=== PATIENT | female | born 1975 | race Caucasian/White ===

== ENCOUNTER 2016-07-30 18:46 | Emergency (ER) | payer OTHER ==
[2016-07-30 18:53] VITALS: RESP 18
--- NOTE | 2016-07-30 19:45 | ED ---
General Adult HPI - General Chief complaint: Eye Problems Stated complaint: Vision loss L eye Time Seen by Provider: 07/30/16 19:05 Source: patient, family, RN notes reviewed Mode of arrival: ambulatory Limitations: no limitations - History of Present Illness Initial comments: Chief complaint and history of present illness a 41-year-old female here with her . The patient has had for the past week worsening vision in her left eye. Patient has migraines approximately one per month. Usually of some photophobia. The migraine she had last week and then a day or so later she started having difficulty seeing with her left side. Initially it was as though there was a large dark spot in the middle of her vision she can see all around the above and below now she has difficulty seeing the upper field of view and the medial side of view. Patient has not had a headache. She does not normally have auras associated with the headaches. Denies any trauma. Denies any palpitations. Denies any significant medical problems. States she waited this long is expecting it to get better and improved. - Related Data Home Medications Medication Instructions Recorded Confirmed [id number] 1 tab PO Q4HR PRN 07/30/16 07/30/16 [Excedrin] Estrogens, Conjugated [Premarin] 0.625 mg PO DAILY 07/30/16 07/30/16 Levothyroxine Sodium [Synthroid] 50 mcg PO DAILY 07/30/16 07/30/16 Allergies Allergy/AdvReac Type Severity Reaction Status Date / Time Penicillins Allergy Anaphylaxis Verified 07/30/16 19:22 Review of Systems ROS Statement: Those systems with pertinent positive or pertinent negative responses have been documented in the HPI. Review of systems. No headache. Left eye visual acuity changes as noted in the chief complaint. No problem with right eye no sore throat no stiff neck no headache. No chest pain palpitations shortness of breath no GI/ problems. No neuro deficits other than visual changes with her left eye. All systems were reviewed. Past medical problems migraines almost monthly. Only associated problems usually photophobia. Denies ever having had any significant scotomas or visual acuity changes. Patient surgeries include hysterectomy and tonsillectomy. Family history no cancers of brain tumors or problems with her eyes. No history of MS. The family. She has ALLERGIES to penicillin. She does smoke strongly encouraged to stop denies alcohol use. ROS Other: All systems not noted in ROS Statement are negative. Past Medical History Past Medical History: Thyroid Disorder History of Any Multi-Drug Resistant Organisms: None Reported Past Surgical History: Hysterectomy, Tonsillectomy Past Psychological History: No Psychological Hx Reported Smoking Status: Current every day smoker Past Alcohol Use History: None Reported Past Drug Use History: None Reported General Exam - General Exam Comments Initial Comments: General: The patient is awake and alert, in no distress, and does not appear acutely ill. Planes of worsening over the past week left eye visual acuity. Vital signs show temperature 98.7 pulse 53 respiratory rate 18 pulse ox 98% room air blood pressure 177/92. Elevated systolic diastolic not typical for the patient. Eye: Pupils are equal, round and reactive to light, extra-ocular movements are intact ; there is normal conjunctiva bilaterally. No signs of icterus. No photophobia. Sclera normal. Visual acuity right eye 20/40 left eye 20/100 and bilateral 20/25. Recently the patient's been complaining of visual acuity changes with her left eye. No difficulty seeing the upper and the medial aspects of her visual field. This is getting progressively worse over the past week. Ears, nose, mouth and throat: There are moist mucous membranes and no oral lesions. Neck: The neck is supple, there is no tenderness , no anterior cervical lymphadenopathy. No carotid bruits.. Cardiovascular: There is a regular rate and rhythm. No murmur, rub or gallop is appreciated. Respiratory: Lungs are clear to auscultation, respirations are non-labored, breath sounds are equal. No wheezes, stridor, rales, or rhonchi. Gastrointestinal: Soft, non-distended, non-tender abdomen without masses or organomegaly noted. There is no rebound or guarding present. No CVA tenderness. Bowel sounds are unremarkable. Back: No complaint of back pain. Musculoskeletal: Normal ROM, no tenderness, There is no pedal edema. There is no calf tenderness or swelling. Sensation intact. Pulses equal bilaterally 2+. Neurological: CN II-XII intact, There are no obvious motor or sensory deficits. Coordination appears grossly intact. Speech is normal. No focal or lateralizing findings, cranial nerves are intact. Skin: Skin is warm and dry and no rashes or lesions are noted. Limitations: no limitations Course Vital Signs 07/30/16 07/30/16 18:51 20:02 Temperature 98.7 F Pulse Rate 53 L 54 L Respiratory 18 18 Rate Blood Pressure 177/92 141/84 O2 Sat by Pulse 98 100 Oximetry EKG Findings - EKG Comments: EKG Findings:: EKG was done and reviewed at 1924 showing marked sinus bradycardia. No acute ST elevation. No ectopy. Rate 45 when necessary 4 QRS 88 QT [address] Lemus Medical Decision Making - Medical Decision Making Medical decision making; the patient had a CAT scan of the brain done and reviewed by radiologist his findings are there is no acute intracranial hemorrhage, mass effect, or midline shift identified. The ventricles and sulci are within normal limits in size. The globes are intact and the visualized sinuses are clear. Impression; #1 no acute intracranial hemorrhage, mass effect , or midline shift seen. #2 if headaches and decreased visual acuity in the left eye persists nonemergent MRI brain should be considered. As read by I discussed the case including the EKG findings and the CAT scan findings with on-call industrial relations director Dr. shepherd. He will see the patient in his office at 9 AM tomorrow morning. Disposition Clinical Impression: Visual acuity reduced Disposition: HOME SELF-CARE Condition: Stable Additional Instructions: Follow-up with the eye doctor tomorrow morning at 9 AM in his office as directed. Time of Disposition: 20:29
--- NOTE | 2016-07-30 20:03 | CT ---
EXAMINATION TYPE: CT brain wo con DATE OF EXAM: 07/30/2016 7:43 PM COMPARISON: NONE HISTORY: Migraine x 1 week with decreased visual field to left eye. CT DLP: 999.80 mGycm. Automated Exposure Control for Dose Reduction was Utilized. TECHNIQUE: CT scan of the head is performed without contrast. FINDINGS: There is no acute intracranial hemorrhage, mass effect, or midline shift identified. The ventricles and sulci are within normal limits in size. The globes are intact and the visualized sin uses are clear. IMPRESSION: 1. No acute intracranial hemorrhage, mass effect, or midline shift is seen. 2. If headaches and decreased visual acuity in the left eye persists, nonemergent MRI brain could be considered.
[2016-07-30 20:04] VITALS: BP 141/84; PULSE 54
[2016-07-30 20:42] VITALS: TEMP 97.9
== END 2016-07-30 20:41 | disposition home or self-care (01) ==
LOC: EC 18:46
DX: Z79.890 Hormone replacement therapy (principal); G43.909 Migraine, unspecified, not intractable, without status migrainosus; E07.9 Disorder of thyroid, unspecified; F17.200 Nicotine dependence, unspecified, uncomplicated; Z79.899 Other long term (current) drug therapy; H54.62 Unqualified visual loss, left eye, normal vision right eye; Z88.0 Allergy status to penicillin
CPT/HCPCS: 70450; 93005; 99284

== ENCOUNTER → 2017-02-16 | Outpatient (CLI) | payer OTHER ==
--- NOTE | 2017-02-17 10:51 | MM ---
Reason for exam: screening (asymptomatic). Last mammogram was performed 7 years and 1 month ago. History: Patient is postmenopausal. Cancelled Right Needle Localization of the right breast, January 23, 2010. Cancelled Right Mammotome of the right breast, January 05, 2010. 2 benign excisional biopsies of the left breast. Took hormonal contraceptives for 3 years. Physical Findings: A clinical breast exam by your physician is recommended on an annual basis and results should be correlated with mammographic findings. MG Screening Mammo w CAD Bilateral CC and MLO view(s) were taken. No prior studies available for comparison. The breast tissue is heterogeneously dense. This may lower the sensitivity of mammography. There are rounded calcifications appearing at the skin surface near the intramammry fold and superiorly at a middle anterior depth on right breast. No suspicious abnormality. ASSESSMENT: Benign, BI-RAD 2 RECOMMENDATION: Routine screening mammogram of both breasts in 1 year. Manage on a clinical basis with regard to intermittent left breast pain. If focal diagnostic mammogram should be performed.
== END | disposition home or self-care (01) ==
LOC: RADMAMWWP 07:55
PROVIDERS: ATTEND Family Medicine
DX: Z12.31 Encounter for screening mammogram for malignant neoplasm of breast (principal)

== ENCOUNTER → 2017-02-16 | Outpatient (CLI) | payer OTHER ==
--- NOTE | 2017-02-16 10:35 | MR ---
EXAMINATION TYPE: MR lumbar spine wo con DATE OF EXAM: 02/16/2017 COMPARISON: 12/25/2010 HISTORY: 41-year-old female chronic low back pain TECHNIQUE: Multiplanar, multisequence images of the lumbar spine were acquired. Findings: Vertebral body heights are preserved and alignment is maintained. A T1 hypointense focus within the right L1 vertebral body was present back in 2010 suggesting a benig n etiology. Fatty matrix hemangioma within L3 vertebral body. No suspicious bone marrow placement. Relatively maintained disc hydration with only minimal disc bulging particularly at L4-L5. Facet arthropathy mid to lower lumbar spine. 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 This is increased in size from 2010 where it measured 1.8 cm. No prevertebral or paravertebral soft tissue abnormality. Conus medullaris is normal. No significant spinal canal or neuroforaminal stenosis identified. IMPRESSION: 1. Increasing size of the left-sided sacral Tarlov cyst now measuring 2.6 cm versus 1.8 cm on 12/26/19 11. There is associated chronic bony expansion and remodeling secondary to the cyst. Note that this i s probably an incidental finding. Occasionally, these can be symptomatic. 2. Very minimal disc bulging particularly at L4-L5. Mild facet arthropathy in the mid to lower lumbar spine appears slightly increased. 3. No significant spinal canal or neuroforaminal stenosis.
== END | disposition home or self-care (01) ==
LOC: RADMRIMAIN 08:20
PROVIDERS: ATTEND Family Medicine
DX: M51.26 Other intervertebral disc displacement, lumbar region (principal); M46.86 Other specified inflammatory spondylopathies, lumbar region
CPT/HCPCS: 72148

== ENCOUNTER 2017-10-17 11:39 | Emergency (ER) | payer OTHER ==
[2017-10-17 12:53] LABS: Basophils % (A) 0 %; Eosinophils # (A) 0.2 k/uL (0-0.7); Eosinophils % (A) 2 %; HGB 14.2 gm/dL (11.4-16.0); Lymphocytes # (A) 1.1 k/uL (1.0-4.8); Lymphocytes % (A) 16 %; MCH 29.8 pg (25.0-35.0); MCHC 33.1 g/dL (31.0-37.0); Monocytes # (A) 0.3 k/uL (0-1.0); Monocytes % (A) 4 %; Neutrophils # (A) 5.5 k/uL (1.3-7.7); Neutrophils % (A) 77 %; Platelet Count 220 k/uL (150-450); RBC 4.78 m/uL (3.80-5.40); RDW 13.5 % (11.5-15.5); WBC 7.2 k/uL (3.8-10.6)
[2017-10-17 13:09] LABS: ALT 23 U/L (9-52); AST 17 U/L (14-36); Albumin 3.6 g/dL (3.5-5.0); Alkaline Phosphatase 57 U/L (38-126); Amylase 47 U/L (30-110); Anion Gap 10 mmol/L; Blood Urea Nitrogen 20 mg/dL (7-17); Calcium 8.9 mg/dL (8.4-10.2); Carbon Dioxide 27 mmol/L (22-30); Chloride 105 mmol/L (98-107); Glucose 91 mg/dL (74-99); Lipase 32 U/L (23-300); Potassium 3.8 mmol/L (3.5-5.1); Sodium 142 mmol/L (137-145); Total Bilirubin 0.7 mg/dL (0.2-1.3); Total Protein 5.9 g/dL (6.3-8.2)
[2017-10-17] MEDS ORDERED: SODIUM CHLORIDE 0.9% 1,000 ML IV STA (13:17)
[2017-10-17] MEDS ORDERED: ONDANSETRON 4 MG/2 ML VIAL IVP STA (13:17)
[2017-10-17] MEDS ORDERED: SODIUM CHLORIDE 0.9% 2,000 ML IV STA (13:17)
[2017-10-17] MEDS ORDERED: PANTOPRAZOLE 40 MG/10 ML VIAL IVP STA (13:19)
[2017-10-17] MEDS ORDERED: ACETAMINOPHEN IV (For NPO) 1,000 MG in EMPTY BAG 1 BAG IVPB ONE (14:07)
--- NOTE | 2017-10-17 14:07 | ED ---
Nausea/Vomiting/Diarrhea HPI - General Chief complaint: Nausea/Vomiting/Diarrhea Stated complaint: vomiing Time Seen by Provider: 10/17/17 13:11 Source: patient Mode of arrival: ambulatory Limitations: no limitations - History of Present Illness Initial comments: This 42-year-old white female presents with a complaint of some nausea and vomiting. She states that it is been present for the last 3 days. She further relates that she is unable to take in any food or fluids whatsoever has she will just vomit them right back up. She has occasional midepigastric abdominal pain when she vomits. She denies any diarrhea, fevers, or chills. She does feel weak and dehydrated. She also has had a slight headache. She relates that she's had occasional midsternal chest pain which is worse with deep inspiration or movement. 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 She denies any previous similar incidents. No other complaints or modifying factors. - Related Data Home Medications Medication Instructions Recorded Confirmed Levothyroxine Sodium [Synthroid] 50 mcg PO DAILY 07/30/16 10/17/17 Previous Rx's Medication Instructions Recorded Famotidine [Pepcid] 20 mg PO BID #20 tablet 10/17/17 Ondansetron [Zofran ODT] 8 mg PO Q8HR PRN #20 tab 10/17/17 Promethazine Suppository 25 mg RECTAL QID PRN #20 supp 10/17/17 [Phenergan] Allergies Allergy/AdvReac Type Severity Reaction Status Date / Time Penicillins Allergy Anaphylaxis Verified 10/17/17 12:54 Review of Systems ROS Statement: Those systems with pertinent positive or pertinent negative responses have been documented in the HPI. ROS Other: All systems not noted in ROS Statement are negative. Past Medical History Past Medical History: Thyroid Disorder History of Any Multi-Drug Resistant Organisms: None Reported Past Surgical History: Hysterectomy, Tonsillectomy Past Psychological History: No Psychological Hx Reported Smoking Status: Current every day smoker Past Alcohol Use History: None Reported Past Drug Use History: None Reported General Exam - General Exam Comments Initial Comments: GENERAL: The patient is well nourished and well hydrated. VITAL SIGNS: Heart rate, blood pressure, respiratory rate reviewed as recorded in nurse's notes. EYES: Pupils are round and reactive. Extraocular movements are intact. No conjunctival / lid redness or swelling. ENT: No external evidence of injury, swelling, or ecchymosis. Airway is patent. Throat is clear. Mucous membranes are slightly dry. NECK: Nontender. No swelling or evidence of injury. No subcutaneous emphysema. Trachea is midline. No thyroid mass. HEART: Regular rate and rhythm. Good peripheral pulses. LUNGS/CHEST: Breath sounds clear and equal bilaterally. No rales, rhonchi, or wheezes. No ecchymosis, subcutaneous emphysema, or tenderness. ABDOMEN: There is minimal tenderness in the midepigastric region. No palpable masses or organomegaly. No peritoneal signs. No abdominal wall swelling or ecchymosis. EXTREMITIES: No extremity tenderness. Normal muscle tone and function. No thoracolumbar tenderness. NEUROLOGIC: Sensation is grossly intact. Cranial nerve exam reveals face is symmetrical, tongue is midline, speech is clear. SKIN: No abrasions or ecchymosis is noted. No induration or masses noted. PSYCHIATRIC: Alert and oriented. Appropriate behavior and judgment. Limitations: no limitations Course Vital Signs 10/17/17 10/17/17 10/17/17 11:59 13:52 15:56 Temperature 100.3 F H 99.9 F H 98.2 F Pulse Rate 80 52 L 76 Respiratory 18 18 18 Rate Blood Pressure 110/71 139/87 124/67 O2 Sat by Pulse 97 96 97 Oximetry Medical Decision Making - Medical Decision Making The patient was seen and examined. All diagnostics are reviewed. An IV is established and she does receive ample fluid hydration as well as some Zofran and Toradol. She also receives some Protonix IV. The laboratory is unremarkable. The urinalysis does show some hematuria. The acute abdominal series x-ray does not show any cardiopulmonary processes. They did note a possible phlebolith versus urinary tract stone. The patient states that she has had kidney stones in the past and she does not feel as though she has one right now. She is not having any flank pain. She is not having any abdominal pain other than the midepigastric pain when she vomits. She is offered a computed tomography scan of the abdomen and pelvis to further evaluate for kidney stone but refuses. Overall, it is felt as though she likely does have a viral gastritis. She is feeling much improved on recheck. It is felt as though she stable for discharge with close follow-up. - Lab Data Result diagrams: 10/17/17 12:38 10/17/17 12:38 Lab Results 10/17/17 10/17/17 10/17/17 Range/Units 12:38 12:38 15:50 WBC 7.2 (3.8-10.6) k/uL RBC 4.78 (3.80-5.40) m/uL Hgb 14.2 (11.4-16.0) gm/dL Hct 43.0 (34.0-46.0) % MCV 90.0 (80.0-100.0) fL MCH 29.8 (25.0-35.0) pg MCHC 33.1 (31.0-37.0) g/dL RDW 13.5 (11.5-15.5) % Plt Count 220 (150-450) k/uL Neutrophils % 77 % Lymphocytes % 16 % Monocytes % 4 % Eosinophils % 2 % Basophils % 0 % Neutrophils # 5.5 (1.3-7.7) k/uL Lymphocytes # 1.1 (1.0-4.8) k/uL Monocytes # 0.3 (0-1.0) k/uL Eosinophils # 0.2 (0-0.7) k/uL Basophils # 0.0 (0-0.2) k/uL Sodium 142 (137-145) mmol/L Potassium 3.8 (3.5-5.1) mmol/L Chloride 105 (98-107) mmol/L Carbon Dioxide 27 (22-30) mmol/L Anion Gap 10 mmol/L BUN 20 H (7-17) mg/dL Creatinine 0.60 (0.52-1.04) mg/dL Est GFR (CKD-EPI)AfAm >90 (>60 ml/min/1.73 sqM) Est GFR (CKD-EPI)NonAf >90 (>60 ml/min/1.73 sqM) Glucose 91 (74-99) mg/dL Calcium 8.9 (8.4-10.2) mg/dL Total Bilirubin 0.7 (0.2-1.3) mg/dL AST 17 (14-36) U/L ALT 23 (9-52) U/L Alkaline Phosphatase 57 (38-126) U/L Total Protein 5.9 L (6.3-8.2) g/dL Albumin 3.6 (3.5-5.0) g/dL Amylase 47 (30-110) U/L Lipase 32 (23-300) U/L Urine Color Yellow Urine Appearance Clear (Clear) Urine pH 6.0 (5.0-8.0) Ur Specific [place] 1.016 (1.001-1.035) Urine Protein Negative (Negative) Urine Glucose (UA) Negative (Negative) Urine Ketones Negative (Negative) Urine Blood Moderate H (Negative) Urine Nitrite Negative (Negative) Urine Bilirubin Negative (Negative) Urine Urobilinogen <2.0 (<2.0) mg/dL Ur Leukocyte Esterase Negative (Negative) Urine RBC 27 H (0-5) /hpf Urine WBC 1 (0-5) /hpf Ur Squamous Epith Cells 4 (0-4) /hpf Urine Mucus Few H (None) /hpf Disposition Clinical Impression: Nausea and vomiting, Dehydration, Abdominal pain, Viral gastritis, Hematuria Disposition: HOME SELF-CARE Condition: Fair Instructions: Acute Nausea and Vomiting (ED), Abdominal Pain (ED), Gastroenteritis (ED), Dehydration (ED) Prescriptions: Famotidine [Pepcid] 20 mg PO BID #20 tablet Ondansetron [Zofran ODT] 8 mg PO Q8HR PRN #20 tab PRN Reason: Nausea Promethazine Suppository [Phenergan] 25 mg RECTAL QID PRN #20 supp PRN Reason: Nausea Is patient prescribed a controlled substance at d/c from ED?: No Referrals: Milan Mendoza MD [Primary Care Provider] - 1-2 days Time of Disposition: 16:19
--- NOTE | 2017-10-17 14:26 | XR ---
EXAMINATION TYPE: Acute abdominal series DATE OF EXAM: 10/17/2017 CLINICAL DATA: 42-year-old female with abdominal pain, PHH COMPARISON: None FINDINGS: Frontal view of the chest shows normal heart size and pulmonary vasculature. No consolidation or pleu ral effusion. No evidence for free intraperitoneal air. No dilated small bowel or air-fluid levels. Scattered air and stool seen throughout the colon extendi ng distally into the rectum. There is moderate stool burden. Multiple pelvic phleboliths. Indeterminate 6 mm calcification is present in the right paramedian mid abdomen. IMPRESSION: 1. No acute cardiopulmonary process. 2.No evidence of bowel obstruction or free intraperitoneal air. 3. Moderate stool burden; query constipation. 4. Possible phlebolith versus 6 mm right-sided urinary tract calculus located in the midabdomen. Husam elate with urinalysis and patient's symptoms.
[2017-10-17 16:03] LABS: Appearance,Urine Clear (Clear); Bilirubin,Urine Negative (Negative); Blood,Urine Moderate (Negative); Color,Urine Yellow; Glucose,Urine (UA) Negative (Negative); Ketones,Urine Negative (Negative); Leukocyte Esterase,Urine Negative (Negative); Mucus,Urine Few /hpf; Nitrite,Urine Negative (Negative); Protein,Urine Negative (Negative); RBC,Urine 27 /hpf (0-5); Specific Gravity,Urine 1.016 (1.001-1.035); Squamous Epithelial Cell,Urine 4 /hpf (0-4); Urobilinogen,Urine <2.0 mg/dL (<2.0); WBC,Urine 1 /hpf (0-5)
[2017-10-17 16:43] VITALS: BP 136/56; PULSE 65; RESP 20; TEMP 98.3
== END 2017-10-17 16:35 | disposition home or self-care (01) ==
LOC: EC 11:39
DX: A08.4 Viral intestinal infection, unspecified (principal); E86.0 Dehydration; R31.9 Hematuria, unspecified; E07.9 Disorder of thyroid, unspecified; F17.200 Nicotine dependence, unspecified, uncomplicated; Z79.899 Other long term (current) drug therapy; Z88.0 Allergy status to penicillin; Z53.29 Procedure and treatment not carried out because of patient's decision for other reasons
CPT/HCPCS: 36415; 93005; 80053; 82150; 83690; 85025; 81001; 74022; 99284; 96374; 96375 ×2; 96361 ×3; J2405; J0131; C9113

== ENCOUNTER → 2021-07-27 | Outpatient (CLI) | payer OTHER ==
--- NOTE | 2021-07-27 13:51 | XR ---
Left hand HISTORY: Trauma and pain 3 views of the left hand Bone mineralization is reduced which could limit evaluation. Joint spaces and alignment are maintaine d, question soft tissue swelling. There is remodeling at the radiocarpal joint. IMPRESSION: No fracture or dislocation is evident.
== END | disposition home or self-care (01) ==
LOC: RADXRMAIN 13:20
PROVIDERS: ATTEND Emergency Medicine
DX: S63.617A Unspecified sprain of left little finger, initial encounter (principal); X58.XXXA Exposure to other specified factors, initial encounter